=== PATIENT | female | born 1980 | race Caucasian/White ===

== ENCOUNTER 2016-02-29 12:10 | Emergency (ER) | payer OTHER ==
[2016-02-29 12:49] VITALS: BP 141/90; PULSE 90; RESP 18; TEMP 98.3; O2SAT 97
--- NOTE | 2016-02-29 13:12 | UCPHY ---
[id number] 4d 02/29/16 13:06 HPI/ROS: CHIEF COMPLAINT: Left foot pain x2 weeks HISTORY OF PRESENT ILLNESS: 35-year-old female with no history of chronic rheumatologic disorder complaining of 2 weeks of intermittent left foot pain general location of the 2nd 3rd 4th distal metatarsals. Yesterday she was on the elliptical circus trainer and noted worse pain last evening. Today she has only able to bear weight partially. No paresthesia. No discoloration. No trauma. No history of STD.No vasculopathy history PHYSICAL EXAM (Prior to examination, patient consented to physical exam, hands were washed and my usual and customary physical exam procedures followed) 1) GENERAL: Well-developed, well-nourished, alert and oriented. Appears to be in no acute distress. 2) HEAD: Normocephalic 3) HEENT: Pupils equal, round, reactive to light bilaterally. 4) LUNGS: Breathing comfortably. 5) MUSCULOSKELETAL: Tender to palpation distal 2nd and 3rd metatarsal with no visible abnormality. No shortening or malrotation. Normal coloration of the skin. Soft compartments. Plantar aspect of foot is soft. There is no soft tissue swelling. No ecchymosis. proximal tibia and fibula nontender .5th MT nontender negative Patel test, compartments soft 6) SKIN: normal coloration. normal temperature. 7) VASCULAR: DP,PT pulses and cap refill present and brisk DIFFERENTIAL DIAGNOSIS: in no particular order including but not limited to fracture, sprain, compartment syndrome Xray of the Left foot interpreted by myself: no definitive acute osseous abnormality Procedure: Crutches indications for crutch use discussed with patient. Patient fitted for crutches by ER staff. Observed ambulating with crutches. I think the patient has the capacity to safely use crutches. Usual and customary crutch walking precautions provided Procedure: Splint A postoperative shoe splint was applied by ER fibre composite technician. After application of the splint I returned and re-examined the patient. The splint was adequately immobilizing the joint and distal to the splint the patient's circulation and sensation were intact. Patient shows no signs of compartment syndrome. Was given orthopedic precautions. (Aracelis Hopkins) Constitutional: Initial Vital Signs Temperature (C) 36.8 C 02/29/16 12:47 Heart Rate 90 02/29/16 12:47 Respiratory Rate 18 02/29/16 12:47 Blood Pressure 141/90 H 02/29/16 12:47 O2 Sat (%) 97 02/29/16 12:47 O2 Delivery Mode Room Air Allergies/Adverse Reactions: No Known Allergies Allergy (Verified 02/29/16 12:41) Home Medications: Medication Instructions Recorded Albuterol 5 mg/ml INH 06/17/14 Singulair 06/17/14 Symbicort 80-4.5 Mcg Inhaler 06/17/14 Bcp 04/05/15 Hydrocodone/APAP 5/325 [[place] 1 tab PO Q6 PRN #15 tab 02/29/16 5/325 (RX)] MDM/Departure - [facility] ED Course/Re-evaluation: I discussed limitations of plain x-rays. We discussed possibility of occult fracture/stress fracture and importance of follow-up with Podiatry as she may necessitate MRI. No indication for emergent consultation or emergent MRI. She has soft compartments and no evidence of compartment syndrome. Doubt septic arthritis of the foot. No evidence of cellulitis. Doubt vasculopathy/embolus. Usual and customary orthopedic precautions provided. (Aracelis Hopkins) The patient was evaluated and managed by the physician metallurgical laboratory assistant. I have reviewed this chart and I agree with the findings and plan of care as documented , as indicated by my signature. I am the secondary supervising physician. ( Martha Rodgers) - Depart Disposition: Home, Routine, Self-Care Clinical Impression: Left foot pain Condition: Good Instructions: Foot Sprain (ED) Additional Instructions: Return to the ER immediately if you experience discoloration, have worsening pain, numbness, tingling, or any other symptoms that concern you. If you received x-rays in the emergency department today, be advised, that ligamentous , tendon, muscular, and other non-bony injury cannot be fully ruled out. Try to keep your affected extremity elevated above the level of your chest, and keep cold packs on the affected area, for the next 48 hours. Prescriptions: Hydrocodone/APAP 5/325 [[place] 5/325 (RX)] 1 tab PO Q6 PRN #15 tab PRN Reason: Pain, Severe Referrals: Jozef Rodríguez DPM [Doctor of Podiatric Medicine] - 2-3 days, call for appt. - PQRS PQRS Measurement: Not applicable (Aracelis Hopkins)
--- NOTE | 2016-02-29 13:34 | DX ---
Left Foot, 3 Views, at 12:52 p.m. Clinical History: 35-year-old female with foot pain for 2 weeks, most pronounced at the level of the 3rd through 5th metatarsals. Comparison Study: None. Findings: Bone mineralization is preserved. There is some mild periosteal thickening involving the di stal medial diaphyseal cortex of the second metatarsal, which could represent a mild stress periostit is. There is no displaced fracture. Minor degenerative spurring along the lateral margin of the great toe metatarsophalangeal joint is seen, with a minor hallux valgus configuration. There is mild pes c avum. There is no ankle joint effusion. Impression: Mild nonspecific periosteal thickening involving the medial diaphyseal cortex of the seco nd metatarsal, with no fracture line observed. If there is further clinical concern regarding a true stress fracture, MR imaging could be considered .
== END 2016-02-29 13:39 | disposition home or self-care (01) ==
LOC: CED 12:10
DX: S93.602A Unspecified sprain of left foot, initial encounter (principal)
CPT/HCPCS: 73630-PO; 99214-PO; G0463-PO